=== PATIENT | male | born 2000 | race Caucasian/White ===

== ENCOUNTER 2021-07-19 13:18 | Emergency (ER) | payer OTHER ==
[~2021-07-19] VITALS: Ht 172.7 cm; Wt 93.9 kg
[2021-07-19] MEDS ORDERED: DICLOFENAC POTA50 MG PO (16:19)
[2021-07-19] MEDS ORDERED: AIRBORNE EFFER1 EACH PO (16:19)
== END 2021-07-19 16:29 | disposition home or self-care (01) ==
LOC: ER 13:18
DX: J06.9 Acute upper respiratory infection, unspecified (principal); Z03.818 Encounter for observation for suspected exposure to other biological agents ruled out

== ENCOUNTER 2021-08-01 19:03 | Emergency (ER) | payer OTHER ==
[~2021-08-01] VITALS: Ht 172.7 cm; Wt 86.2 kg
[~2021-08-01 19:03] MED LIST: AIRBORNE EFFER1 EACH PO; DICLOFENAC POTA50 MG PO
== END 2021-08-02 | disposition home or self-care (01) ==
LOC: ER 19:03
DX: R06.02 Shortness of breath (principal); J30.9 Allergic rhinitis, unspecified; J45.998 Other asthma

== ENCOUNTER 2021-10-10 13:29 | Emergency (ER) | payer OTHER ==
[~2021-10-10] VITALS: Ht 177.8 cm; Wt 91.2 kg
[2021-10-10] MEDS ORDERED: DOLOGEN 325-11 EACH PO (18:45)
[2021-10-10] MEDS ORDERED: MEDROLPACK PO (18:45)
[2021-10-10] MEDS ORDERED: TUSNEL LIQUID178 ML PO (18:45)
== END 2021-10-10 19:33 | disposition home or self-care (01) ==
LOC: ER 13:29
DX: U07.1 COVID-19 (principal); J06.9 Acute upper respiratory infection, unspecified